=== PATIENT | male | born 1955 ===

== ENCOUNTER 2017-07-10 17:34 | Inpatient (IN) ==
[2017-07-10] MEDS ORDERED: DEXTROSE 50% 25 GM/50 ML VIAL IV PRN (21:22)
[2017-07-10] MEDS ORDERED: ONDANSETRON 4 MG/2 ML VIAL IV PRN (21:22)
[2017-07-10] MEDS ORDERED: MORPHINE 2 MG/1 ML SYRINGE IV PRN (21:22)
[2017-07-10] MEDS ORDERED: GLUCAGON 1 MG VIAL IM PRN (21:22)
[2017-07-10] MEDS: SODIUM CHLORIDE 0.9% 1,000 ML IV SCH (21:56)
[2017-07-10] MEDS: ENOXAPARIN 40 MG/0.4 ML SYRINGE SUBCUT SCH (21:56)
[2017-07-10] MEDS: CEFTAROLINE 600 MG in SODIUM CHLORIDE 0.9% 50 ML IV SCH (21:59)
[2017-07-10] MEDS: INSULIN REGULAR 100 UNIT/ML SUBCUT SCH (22:51)
[2017-07-10 22:58] LABS: Basophils % 0.2 % (0.0-0.8); Hematocrit 34.5 VOL% (42.0-52.0); Hemoglobin 12.2 GM/DL (14.0-18.0); Immature Granulocytes % 0.5 %; Immature Granulocytes Absolute 0.11 #; Lymphocytes # 0.7 10*3/uL (1.4-4.0); Lymphocytes % 3.4 % (21.2-54.2); Mean Corpuscular HGB Conc 35.4 GM/DL (32-36); Mean Corpuscular Hemoglobin 34 PG (27-34); Mean Corpuscular Volume 96.9 FL (87-102); Mean Platelet Volume 9.7 FL (9.6-12.0); Monocytes # 1.1 10*3/uL (0.11-0.8); Monocytes % 5.2 % (1.7-12.7); Neutrophils # 18.7 10*3/uL (1.4-7.4); Neutrophils % 90.7 % (38.7-73.9); Platelet Count 224 T/CUMM (130-400); Red Blood Count 3.56 MC/CUMM (3.8-5.5); Red Cell Distribution Width 14.3 % (9.3-17.3); White Blood Count 20.6 T/CUMM (4-12)
[2017-07-10] MEDS ORDERED: INFLUENZA VIRUS VACCINE 0.5 ML SYRINGE IM ONE (23:13)
[2017-07-10 23:16] LABS: Lactic Acid 1.2 MMOL/L (0.4-2.0)
[2017-07-10 23:21] LABS: Band Neutrophils 8 % (0-10); Lymphocytes 2 % (20-55); Segmented Neutrophils 90 % (50-85)
[2017-07-10 23:22] LABS: Platelet Estimate Normal; Total Cells Counted 100
[2017-07-10 23:24] LABS: Albumin 3.2 G/DL (3.4-5.0); Calcium 7.9 MG/DL (8.5-10.1); Free T4 (Free Thyroxine) 0.59 NG/DL (0.76-1.46); Osmolality,Calculated 273.8 MOS/KG (273-304); Potassium 3.8 MMOL/L (3.5-5.1); Risk Ratio 2.58; Thyroid Stimulating Hormone 14.1 uIU/ml (0.358-3.74); Total Protein 6.2 G/DL (6.4-8.3); Uric Acid 5.4 MG/DL (3.5-7.2); VLDL CHOLESTEROL 12.8 MG/DL
[2017-07-11 05:31] LABS: Apearance,Urine CLEAR (Clear); Bilirubin,Urine Negative (Negative); Blood, Urine Negative (Negative); Glucose,Urine (UA) Negative (Negative); Ketones,Urine Negative (Negative); Mucus,Urine Occasional /LPF (Occasional); Nitrite,Urine Negative (Negative); Protein,Urine Negative; RBC,Urine <1 /HPF (0-4); Squamous Epithelial Cell,Urine Occasional /HPF (0-10); Urine Color Yellow (Yellow); Urine Specific Gravity 1.016 (1.001-1.035); Urine Urobilinogen < 2.0 EU/DL (0.2-1.0); WBC,Urine 4 /HPF (0-6)
[2017-07-11] MEDS: SODIUM CHLORIDE 0.9% 1,000 ML IV SCH ×3 (05:46→22:39)
[2017-07-11] MEDS: INSULIN REGULAR 100 UNIT/ML SUBCUT SCH ×4 (08:46→20:44)
[2017-07-11] MEDS: CEFTAROLINE 600 MG in SODIUM CHLORIDE 0.9% 50 ML IV SCH ×2 (09:37→22:37)
[2017-07-11] MEDS: ACETAMINOPHEN 325 MG TABLET PO PRN (15:31)
[2017-07-11] MEDS: ENOXAPARIN 40 MG/0.4 ML SYRINGE SUBCUT SCH (21:12)
[2017-07-12] MEDS: ACETAMINOPHEN 325 MG TABLET PO PRN (00:35)
[2017-07-12] MEDS: LEVOTHYROXINE 50 MCG TABLET PO SCH (07:31)
[2017-07-12] MEDS: SODIUM CHLORIDE 0.9% 1,000 ML IV SCH ×2 (07:34→17:21)
[2017-07-12] MEDS: INSULIN REGULAR 100 UNIT/ML SUBCUT SCH ×4 (10:20→22:52)
[2017-07-12] MEDS: CEFTAROLINE 600 MG in SODIUM CHLORIDE 0.9% 50 ML IV SCH ×2 (10:41→22:59)
[2017-07-12] MEDS: ENOXAPARIN 40 MG/0.4 ML SYRINGE SUBCUT SCH (20:54)
[2017-07-13] MEDS: SODIUM CHLORIDE 0.9% 1,000 ML IV SCH ×2 (01:32→09:49)
[2017-07-13] MEDS: LEVOTHYROXINE 50 MCG TABLET PO SCH (06:33)
[2017-07-13 07:32] LABS: Basophils % 0.4 % (0.0-0.8); Eosinophils # 0.2 10*3/uL (0.0-0.87); Eosinophils % 2.1 % (0.00-10.9); Hematocrit 31.5 VOL% (42.0-52.0); Hemoglobin 10.8 GM/DL (14.0-18.0); Immature Granulocytes Absolute 0.11 #; Lymphocytes % 9.4 % (21.2-54.2); Mean Corpuscular HGB Conc 34.3 GM/DL (32-36); Mean Corpuscular Hemoglobin 34 PG (27-34); Mean Corpuscular Volume 98.4 FL (87-102); Mean Platelet Volume 10.9 FL (9.6-12.0); Monocytes # 0.7 10*3/uL (0.11-0.8); Monocytes % 6.2 % (1.7-12.7); Neutrophils # 8.5 10*3/uL (1.4-7.4); Neutrophils % 80.9 % (38.7-73.9); Platelet Count 225 T/CUMM (130-400); White Blood Count 10.5 T/CUMM (4-12)
[2017-07-13] MEDS: INSULIN REGULAR 100 UNIT/ML SUBCUT SCH ×4 (08:53→21:27)
[2017-07-13] MEDS: CEFTAROLINE 600 MG in SODIUM CHLORIDE 0.9% 50 ML IV SCH ×2 (09:47→23:18)
[2017-07-13] MEDS: ASPIRIN 325 MG TABLET PO SCH (12:23)
[2017-07-13] MEDS: ENOXAPARIN 40 MG/0.4 ML SYRINGE SUBCUT SCH (20:19)
[2017-07-14 06:16] LABS: Osmolality,Calculated 279.1 MOS/KG (273-304); Potassium 3.7 MMOL/L (3.5-5.1)
[2017-07-14] MEDS: LEVOTHYROXINE 50 MCG TABLET PO SCH (06:45)
[2017-07-14] MEDS: ASPIRIN 325 MG TABLET PO SCH (09:16)
[2017-07-14] MEDS: INSULIN REGULAR 100 UNIT/ML SUBCUT SCH ×2 (09:42→12:41)
[2017-07-14] MEDS: CEFTAROLINE 600 MG in SODIUM CHLORIDE 0.9% 50 ML IV SCH ×2 (10:55→22:02)
[2017-07-14] MEDS: ENOXAPARIN 40 MG/0.4 ML SYRINGE SUBCUT SCH (21:33)
[2017-07-15] MEDS: LEVOTHYROXINE 50 MCG TABLET PO SCH (07:00)
[2017-07-15] MEDS: ASPIRIN 325 MG TABLET PO SCH (09:40)
[2017-07-15] MEDS: CLINDAMYCIN 150 MG CAPSULE PO SCH ×2 (11:55→17:47)
[2017-07-15] MEDS: ENOXAPARIN 40 MG/0.4 ML SYRINGE SUBCUT SCH (21:26)
[2017-07-16] MEDS: CLINDAMYCIN 150 MG CAPSULE PO SCH ×3 (00:53→12:36)
[2017-07-16] MEDS: LEVOTHYROXINE 50 MCG TABLET PO SCH (06:50)
[2017-07-16] MEDS: ASPIRIN 325 MG TABLET PO SCH (08:48)
[2017-07-16 11:59] VITALS: BP 127/77
== END 2017-07-16 14:01 | disposition home or self-care (01) | DRG 720 ==
LOC: EDBD → EDUNIT# → N.ED 17:34 → N.EDINP 20:02 → SUATTDRO 20:02 → N.5E 21:19
PROVIDERS: ADMIT Internal Medicine; ATTEND Internal Medicine

== ENCOUNTER 2018-04-13 23:19 | Observation (INO) ==
[2018-04-14] MEDS ORDERED: MORPHINE 4 MG/1 ML VIAL IV PRN (00:59)
[2018-04-14] MEDS ORDERED: ONDANSETRON 4 MG/2 ML VIAL IV PRN (00:59)
[2018-04-14] MEDS ORDERED: ACETAMINOPHEN 325 MG TABLET PO PRN (00:59)
[2018-04-14] MEDS ORDERED: SODIUM CHLORIDE 0.9% 1,000 ML IV SCH (01:00)
[2018-04-14] MEDS ORDERED: NITROGLYCERIN SL 0.4 MG TABLET SL PRN (01:04)
[2018-04-14] MEDS ORDERED: LORazepam 2 MG/1 ML VIAL IV PRN (01:05)
[2018-04-14] MEDS ORDERED: ALUM/MAG/SIMETH/LIDO VISC 1:1 30 ML BOTTLE PO ONE (02:00)
[2018-04-14] MEDS ORDERED: THIAMINE INJ 100 MG, FOLIC ACID INJ 1 MG, MULTIVITAMIN INJ 10 ML in SODIUM CHLORIDE 0.9... IV ONE (03:30)
[2018-04-14 04:53] LABS: Basophils % 0.8 % (0.0-0.8); Eosinophils # 0.1 10*3/uL (0.0-0.87); Eosinophils % 2.4 % (0.00-10.9); Hematocrit 38.2 VOL% (42.0-52.0); Hemoglobin 13.3 GM/DL (14.0-18.0); Immature Granulocytes % 0.4 %; Immature Granulocytes Absolute 0.02 #; Lymphocytes # 1.1 10*3/uL (1.4-4.0); Lymphocytes % 22.9 % (21.2-54.2); Mean Corpuscular HGB Conc 34.8 GM/DL (32-36); Mean Corpuscular Hemoglobin 33 PG (27-34); Mean Platelet Volume 9.6 FL (9.6-12.0); Monocytes # 0.4 10*3/uL (0.11-0.8); Monocytes % 8.9 % (1.7-12.7); Neutrophils # 3.2 10*3/uL (1.4-7.4); Neutrophils % 64.6 % (38.7-73.9); Platelet Count 214 T/CUMM (130-400); Red Blood Count 4.02 MC/CUMM (3.8-5.5); Red Cell Distribution Width 14.1 % (9.3-17.3)
[2018-04-14 05:33] LABS: Calcium 8.3 MG/DL (8.5-10.1); Risk Ratio 2.71; Thyroid Stimulating Hormone 13.9 uIU/ml (0.358-3.74); VLDL CHOLESTEROL 13.8 MG/DL
[2018-04-14] MEDS ORDERED: ENOXAPARIN 40 MG/0.4 ML SYRINGE SUBCUT SCH (09:00)
[2018-04-14] MEDS ORDERED: PANTOPRAZOLE 40 MG TABLET PO SCH (09:00)
[2018-04-14 12:25] VITALS: BP 136/71
== END 2018-04-14 12:30 | disposition home or self-care (01) ==
LOC: EDSEX → EDBD → EDUNIT# → N.ED 23:19 → N.EDINP 23:19 → N.TELES 04-14 01:44
PROVIDERS: ADMIT Internal Medicine; ATTEND Internal Medicine